=== PATIENT | male | born 1945 | race Caucasian/White ===

== ENCOUNTER → 2024-10-16 09:19 | Outpatient (REF) | payer OTHER, SELFPAY ==
--- NOTE | ~2024-10-16 | NM_ITS ---
Lexiscan Myocardial perfusion study Indication: Prior atherosclerotic heart disease to evaluate for myocardial ischemia Technique: The patient was brought in for a Lexiscan perfusion study on 10/16/2024 and was injected 0.4 mg of Lexiscan intravenously. Within a minute of this injection 30 mCi of sestamibi was given intravenously. Images were obtained using the SPECT gamma camera interlaced with the gating device. Images were obtained in supine position. Resting perfusion study was performed on 10/17/2024. Patient was administered 30 mCi of sestamibi intravenously at rest. Images were then obtained in supine position. Images obtained without without CT attenuation. Total DLP 99 mGy-cm Images were processed with the software and compared side to side in short axis, horizontal long axis and vertical long axis views. Findings: The stress perfusion study showed nonattenuated images show moderately to severely reduced uptake in the distal inferolateral and mildly reduced uptake in the lateral wall as well as uptake in inferoapical and mid inferior wall of the LV myocardium. Attenuated corrected images show mildly reduced uptake apex of the LV myocardium... The gated study shows reduced LV systolic function with calculated LVEF of 46%. LV cavity is moderately dilated in size. The gated study shows reduced wall thickening and contraction of inferior segments. Resting study shows nonattenuated images show mildly to moderately reduced uptake in the inferior wall. Improved uptake in the distal inferolateral as well as the lateral wall of the LV myocardium. Gating at rest reveals basal inferior wall motion with ejection fraction at 49%. The findings are consistent with equivocal finding all fixed inferior wall defect on nonattenuated images with hypokinesis noted. There is also reversible and inferolateral wall. Attenuated corrected images show no significant reversibility.. NM/NM nelson perf SPECT rest & str Impression: 1. Myocardial perfusion imaging study shows equivocal for mild lateral wall ischemia. 2. Gated LVEF is 46% 3. Transient ischemic dilatation not present but LV cavity is dilated Nondiagnostic changes on EKG. Electronically signed by: Luis E Manriquez MD 10/17/2024 01:04 PM EDT
--- NOTE | 2024-10-16 09:27 | CA_ITS ---
Acquisition Time: 2024-10-16 10:19:08 Total Exercise Time: 00:02:00 Test Indications: PREOP Medications: Protocol: LEXISCAN Max HR: 97 BPM 68% of Pred: 142 BPM Max BP: 130/62 mmHG Max Work Load: 1.0 METS Pharmacological stress test with Lexiscan while pt marches in chair, with reports of feeling fuzzy, no chest pain, without any arrythmias, with normotensive responbse to injection. Nondiagnostic EKG for ischemia. In recovery, pt treated with IVP Aminophylline 75 mg to reverse Lexiscan after which pt feeling back to baseline. Nuclear images pending. Test reviewed with Dr. Santos. Referred By: Vamsi Espinosa Electronically Signed By: Gee Slaughter
== END ==
LOC: HO.CARD 09:19
PROVIDERS: PCP Physician Assistant Medical; Visit Provider Physician Assistant Medical
DX: I25.10 Atherosclerotic heart disease of native coronary artery without angina pectoris (principal)
CPT/HCPCS: 78452; 93017; A9500; J0280; J2785

== ENCOUNTER → 2024-10-16 09:27 | Outpatient (BNV) | payer OTHER, SELFPAY | PROVIDERS: PCP Physician Assistant Medical | DX: I25.10 Atherosclerotic heart disease of native coronary artery without angina pectoris (principal) | CPT/HCPCS: 78452; 93016; 93018 ==